=== PATIENT | female | born 1985 | race Hispanic/Latino ===

== ENCOUNTER 2024-04-19 17:33 | Emergency (ER) | payer SELFPAY ==
--- NOTE | ~2024-04-19 | XR_ITS ---
EXAM: XR foot LT min 3V DATE: 04/19/2024 18:08 HISTORY: left foot pain, injury . COMPARISON: None available. FINDINGS: Normal mineralization. No fracture or dislocation. No lytic or blastic lesion. Joint space s are maintained. Mild plantar enthesopathy. No erosion or periosteal change. Soft tissues within nor mal limits. IMPRESSION: No acute osseous finding in the left foot. Reviewed, dictated and finalized at location K.
[2024-04-19 17:35] VITALS: BP 149/86; PULSE 84; RESP 16; TEMP 36.7; O2SAT 100
--- NOTE | 2024-04-19 18:00 | ED.LOWEXIN ---
HPI - Extremity Injury (Lower) General Chief Complaint: Extremity Injury, Lower <Sue Schuster PA-C - Last Filed: 04/21/24 10:39> Stated Complaint: left foot pain <Sue Schuster PA-C - Last Filed: 04/21/24 10:39> Time Seen by Provider: 04/19/24 18:00 <Sue Schuster PA-C - Last Filed: 04/21/24 10:39> Focused HPI: This is a 38 year old female that presents to the ER for left foot pain. Ongoing for several months. Reports the pain is around her heel. Worse with weight bearing and relieved with rest. Denies fever, erythema, edema. GENERAL: Well-appearing, well-nourished, and in no acute distress. HEAD: Normocephalic, atraumatic. CHEST: Clear to auscultation. ?No respiratory distress. HEART: Regular rate and rhythm.? NEURO: ?Alert and oriented x3. Patient screened in triage and initial orders placed.? ?Additional care and disposition to be based upon?diagnostic testing and treatment. <Sue Schuster PA-C - Last Filed: 04/21/24 10:39> History of Present Illness HPI Narrative: Patient is a 38-year-old female who presents ER with foot pain. Worse with ambulating. Located at the base of the foot at the heel as the patient's plantar fascia. Worse with transitioning weight. No numbness or tingling. <Stephon Yu MD - Last Filed: 04/19/24 21:35> Related Data Allergies/Adverse Reactions: Allergies Allergy/AdvReac Type Severity Reaction Status Date / Time No Known Allergies Allergy Verified 04/19/24 17:51 <Sue Schuster PA-C - Last Filed: 04/21/24 10:39> Review of Systems Review of Systems: All systems reviewed & are unremarkable except as noted in HPI and below <Sue Schuster PA-C - Last Filed: 04/21/24 10:39> Musculoskeletal: Musculoskeletal: Denies back pain, Denies myalgias, Reports arthralgias and Denies joint swelling <Stephon Yu MD - Last Filed: 04/19/24 21:35> Integumentary/Breasts: Skin/Breast: Reports system reviewed and no additional complaints, except as docu <Stephon Yu MD - Last Filed: 04/19/24 21:35> Neurologic: Reports system reviewed and no additional complaints, except as documented <Stpehon Yu MD - Last Filed: 04/19/24 21:35> PMFSH Past Medical History Medical History: Medical History (Updated 04/20/24 @ 00:00 by Sumanth Sierra) Healthy female adult <Sue Schuster PA-C - Last Filed: 04/21/24 10:39> Surgical History Surgical History: Surgical History (Updated 04/19/24 @ 21:34 by Stephon Yu MD) No pertinent past surgical history <Sue Schuster PA-C - Last Filed: 04/21/24 10:39> Social History Social History: Social History (Updated 04/21/24 @ 10:39 by Sue Schuster PA-C) Substance use: never <Sue Schuster PA-C - Last Filed: 04/21/24 10:39> Exam Narrative: GENERAL: Well-appearing, well-nourished, and in no acute distress. HEAD: Normocephalic, atraumatic. ENT: Mucous membranes moist. EXTREMITIES: Normal range of motion. No edema. Plantar fascial tenderness of the left foot specifically at the insertion of the anterior heel. Normal pulses. SKIN: Warm, dry, no rash. NEURO: Alert and oriented x3. PSYCH: Normal mood and affect. <Stephon Yu MD - Last Filed: 04/19/24 21:35> Course Course Emergency Course: Educated about plantar fasciitis treatment plan including massage. Patient verbalized understanding. Discharge. <Stephon Yu MD - Last Filed: 04/19/24 21:35> Vital Signs Vital signs: Vital Signs Temperature 98.1 F 04/19/24 17:35 Pulse Rate 84 04/19/24 17:35 Respiratory Rate 16 04/19/24 17:35 Blood Pressure 149/86 H 04/19/24 17:35 Pulse Oximetry 100 04/19/24 17:35 Oxygen Delivery Room Air 04/19/24 17:35 Temperature 98.1 F 04/19/24 17:35 Pulse Rate 79 04/19/24 21:38 Respiratory Rate 15 04/19/24 21:38 Blood Pressure 117/70 04/19/24 21:38 Pulse Oximetry 100 04/19/24 21:38 Oxygen Delivery R
[2024-04-19 21:38] VITALS: BP 117/70; PULSE 79; RESP 15; O2SAT 100
== END 2024-04-19 21:52 | disposition home or self-care (01) ==
LOC: ANHED 21:45
PROVIDERS: Emergency Provider Emergency Medicine
DX: M72.2 Plantar fascial fibromatosis (principal)
CPT/HCPCS: 73630; 99283